=== PATIENT | female | born 1945 | race Caucasian/White ===

== ENCOUNTER → 2017-06-16 | Outpatient (CLI) | payer OTHER ==
[~2017-06-16] MED LIST: ASPIRIN EC325 M1 PO; LISINOPRIL10 MG PO; LOPRESSOR25 PO; MVI; NICODERM CQ1 EAC1 TD; PLAVIX 75 MG TA75 MG PO; SIMVASTATIN40 MG PO
== END ==
LOC: RAD 07:12
DX: Z12.31 Encounter for screening mammogram for malignant neoplasm of breast (principal)

== ENCOUNTER 2017-06-21 10:45 | Emergency (ER) | payer OTHER ==
[~2017-06-21] VITALS: Ht 154.9 cm; Wt 52.2 kg
[~2017-06-21 10:45] MED LIST changes: -ASPIRIN EC325 M1 PO; +ASPIRIN81 M2 PO
[2017-06-21] MEDS ORDERED: FOSAMAX 70 MG T70 MG PO (11:12)
[2017-06-21] MEDS ORDERED: AVALIDE 300-121 EACH PO (11:13)
[2017-06-21 12:08] VITALS: BP 128/54
== END 2017-06-21 12:55 | disposition home or self-care (01) ==
LOC: ER 10:45
DX: S82.62XA Displaced fracture of lateral malleolus of left fibula, initial encounter for closed fracture (principal); I10 Essential (primary) hypertension; F17.210 Nicotine dependence, cigarettes, uncomplicated; Z91.041 Radiographic dye allergy status; W18.40XA Slipping, tripping and stumbling without falling, unspecified, initial encounter; Y93.01 Activity, walking, marching and hiking; Y92.89 Other specified places as the place of occurrence of the external cause; Y99.8 Other external cause status

== ENCOUNTER → 2017-07-13 | Outpatient (CLI) | payer OTHER ==
[~2017-07-13] MED LIST changes: +AVALIDE 300-121 EACH PO; +FOSAMAX 70 MG T70 MG PO
== END ==
LOC: RAD 15:33
DX: J44.9 Chronic obstructive pulmonary disease, unspecified (principal)

== ENCOUNTER → 2017-07-24 | Outpatient (CLI) | payer OTHER | LOC: CAT 08:02 | DX: R63.4 Abnormal weight loss (principal); R91.8 Other nonspecific abnormal finding of lung field ==

== ENCOUNTER → 2017-08-12 | Outpatient (CLI) | payer OTHER | LOC: MRI 09:27 | DX: R22.2 Localized swelling, mass and lump, trunk (principal) ==

== ENCOUNTER → 2018-09-28 | Outpatient (CLI) | payer OTHER | LOC: MRI 13:50 → LABMALL 13:50 → MRI 13:57 | DX: C34.92 Malignant neoplasm of unspecified part of left bronchus or lung (principal); M48.56XA Collapsed vertebra, not elsewhere classified, lumbar region, initial encounter for fracture ==

== ENCOUNTER 2021-07-12 08:30 | Emergency (ER) | payer OTHER ==
[~2021-07-12] VITALS: Ht 167.6 cm; Wt 58.0 kg
[2021-07-12 08:43] LABS: ABSOLUTE NEUTROPHILS 4.1 thou/uL (1.4-8.2); BASOPHILS 0.7 % (0.0-2.0); EOSINOPHILS 4.3 % (0.0-3.0); HEMATOCRIT 36.9 % (37.0-47.0); HEMOGLOBIN 12.3 gm/dL (12.0-15.0); LYMPHOCYTES 16.6 % (24.0-44.0); MCH 31.3 pg (26.0-34.0); MCHC 33.2 g/dL (28.0-37.0); MCV 94.2 fL (80.0-100.0); MONOCYTES 9.6 % (1.0-8.0); PLATELET COUNT 272 thou/uL (150-400); POLYS 68.8 % (36.0-66.0); RBC 3.91 mil/uL (4.20-5.00); RDW 14.3 % (10.5-14.5); WBC 5.9 thou/uL (4.0-11.0)
[2021-07-12 08:49] LABS: CREATININE 1.1 mg/dL (0.6-1.0); POTASSIUM 4.5 mmol/L (3.5-5.1)
[2021-07-12 08:58] LABS: APTT 27.7 Seconds (24.5-32.8); INR 0.98; PROTIME 10.7 Seconds (10.5-12.1)
[2021-07-12 09:00] LABS: ALBUMIN 3.7 g/dL (3.4-5.0); TOTAL BILIRUBIN 0.3 mg/dL (0.2-1.0); TOTAL PROTEIN 7.7 g/dL (6.4-8.2)
--- NOTE | 2021-07-12 12:41 | EKG ---
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 : 1945 Requested By: Toney Gould Order Number: [id number] MD: Juan Veolz Measurements Intervals [place] Rate: 88 P: 72 [place]: 164 QRS: 64 QRSD: 107 T: -22 QT: 374 QTc: 453 Interpretive Statements Sinus rhythm Inferior infarct, age indeterminate Baseline wander in lead(s) V3 Compared to ECG 08/07/2011 07:57:17 No significant changes Electronically Signed On 07-12-2021 12:41:32 CDT by Juan Veloz [email or web address] <ELECTRONICALLY SIGNED> By: Juan Veloz MD, [facility] 07/12/21 1241 0855 [id number] Juan Veloz MD, FACC /EPI
--- NOTE | 2021-07-12 12:46 | EKG ---
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 : 1945 Requested By: Toney Gould Order Number: [id number] MD: Juan Veloz Measurements Intervals [place] Rate: 80 P: -81 AR: 126 QRS: 49 QRSD: 115 T: -19 QT: 412 QTc: 476 Interpretive Statements Ectopic atrial rhythm Nonspecific intraventricular conduction delay Inferior infarct, age indeterminate Consider anterolateral infarct Compared to ECG 07/12/2021 08:55:27 Ectopic atrial rhythm now present Intraventricular conduction delay now present Sinus rhythm no longer present Myocardial infarct finding still present Electronically Signed On 07-12-2021 12:46:30 CDT by Juan Veloz [email or web address] <ELECTRONICALLY SIGNED> By: Juan Veloz MD, [facility] 07/12/21 1246 1135 1135 Juan Veloz MD, [facility] /EPI
[2021-07-12 13:47] VITALS: BP 117/45
== END 2021-07-12 13:51 | disposition short-term general hospital (02) ==
LOC: ER 08:30
PROVIDERS: Student in an Organized Health Care Education/Training Program
DX: R41.82 Altered mental status, unspecified (principal); R22.0 Localized swelling, mass and lump, head; R56.9 Unspecified convulsions; I10 Essential (primary) hypertension; E78.00 Pure hypercholesterolemia, unspecified; Z79.82 Long term (current) use of aspirin; Z79.899 Other long term (current) drug therapy; Z91.041 Radiographic dye allergy status

== ENCOUNTER 2021-08-13 07:42 | Emergency (ER) | payer OTHER ==
[~2021-08-13] VITALS: Ht 154.9 cm; Wt 51.3 kg
--- NOTE | ~2021-08-13 | EMS ---
[address] [address] EMS Patient Care Report Name: TESS ALCANTAR Room #: REG ANGELLA Capone#: [id number] Admission: 08/13/21 Attend Phys: Discharge: Date of : 41 Report #: [id number] THIS REPORT FOR: //name// Report Transmitted: 08/13/2021 07:54 EMS Care Summary [facility] MED-ACT Incident [id number] @ 08/13/2021 07:01 Incident Location [address] [place] [address] Patient TESS ALCANTAR Female, 76 Years 1945 Patient Address [address] [place] [address] Patient History Hypertension (HTN),Seizures,Gastro-Esophageal Reflux Disease (GERD),Brain Tumor, Patient Allergies Other drug allergy, Patient Medications Simvastatin, Levetiracetam, Prednisone, Amlodipine, Hydrocodone, Diphenhydramine, Metoprolol, Zofran, Lorazepam, Dexamethasone, Pantoprazole, Chief Complaint Fever and chills Disposition Transported No Lights/[place] Reason Convulsions/Seizure Transported To [facility] Narrative Dispatch- Medic 1134 is dispatched to a residence for a possible seizure. CC- EMS arrives to find a 76 year old female laying on her right side on the [facility] [address] [place] [address] EMS Patient Care Report Name: TESS ALCANTAR Room #: REG Estelita#: [id number] Admission: 08/13/21 Attend Phys: Discharge: Date of : 41 Report #: [id number] bed in the bedroom. The pt is A&Ox4. The pt has a CC of body aches, chills and feeling cold. She is noted to have a fever. Pt also complained of general body fatigue. History- The pt states that the pt had a seizure 3 weeks ago and went to the ER and it was found the pt has a brain tumor. The states that when the pt experienced a seizure she was not able to have a conversation. The reports that the pt is not presenting the same way as she was 3 weeks ago. The denies any known recent fevers. The pt states she has not experienced any recent issues with urinary frequency. The pt reports that she is "freezing cold" and her body aches everywhere. Assessment- ALS assessment. Pertinent negatives include no chest pain, difficulty breathing, recent infections, or urinary infrequencies. Treatment- ALS, 4 lead EKG, vitals, oxygen, and vascular access. Transport- The pt is carried to the [facility]. The pt is transferred to [facility]. The pt remained stable while en route. The pts Spo2 improved from an initial reading of 84% on room air, to 98% on 4 liters via nasal cannula. The pt only complained of being cold while en route. Initial Vitals @07:23P: 120,BP: 122/57,SpO2: 86, @07:24P: 122,R: 20,EtCO2: 0, @07:26P: 118,R: 36,EtCO2: 29,SpO2: 91, @07:35P: 113,R: 32,BP: 122/69,EtCO2: 31,SpO2: 98, @07:09P: 129,R: 25,BP: 126/56,Pain: 6/10,GCS: 15,Temp: 101.5F,Glucose: 212,SpO2: 84,Revised Trauma: 12,[place] Suspected: false Impression Fever Procedures @07:09 ALS Assessment Response: UnchangedSucceeded @07:11 Oxygen FlowRate: 4 Device: Nasal Cannula (NC) Response: ImprovedSucceeded @07:24 3-Lead ECG Response: UnchangedSucceeded @07:15 Surgical Mask on Patient Response: Unchanged @07:30 IV Therapy - Saline Lock 10cc (20 ga) Site: Forearm-Right Response: UnchangedFailed @07:32 IV Therapy - Saline Lock 10cc (22 ga) Site: Forearm-Left Response: UnchangedSucceeded @07:20 Oxygen FlowRate: 4 Device: CO2 Nasal Cannula Response: UnchangedSucceeded [facility] [address] [place] [address] EMS Patient Care Report Name: TESS ALCANTAR Room #: NICHOLAS Capone#: [id number] Admission: 08/13/21 Attend Phys: Discharge: Date of : 41 Report #: [id number] Timeline 07:00,Call Received 07:00,Psap Call 07:01,Dispatched 07:03,En Route 07:07,On Scene 07:08,At Patient 07:09,ALS Assessment,Response: UnchangedSucceeded, 07:09,BP: 126/56 M,PULSE: 129,RR: 25 R,SPO2: 84 Ox,ETCO2: ,B,PAIN: 6,GCS: 15, 07:11,Oxygen FlowRate: 4 Device: Nasal Cannula (NC) Response: ImprovedSucceeded, 07:15,Surgical Mask on Patient,Response: Unchanged 07:20,Oxygen FlowRate: 4 Device: CO2 Nasal Cannula Response: UnchangedSucceeded, 07:23,BP: 122/57 M,PULSE: 120,RR: R,SPO2: 86 Ox,ETCO2: ,BG: ,PAIN: ,GCS: , 07:24,3-Lead ECG,Response: UnchangedSucceeded, 07:24,BP: / M,PULSE: 122,RR: 20 R,SPO2: Ox,ETCO2: 0 ,BG: ,PAIN: ,GCS: , 07:26,BP: / M,PULSE: 118,RR: 36 R,SPO2: 91 Ox,ETCO2: 29 ,BG: ,PAIN: ,GCS: , 07:29,Depart Scene 07:30,IV Therapy - Saline Lock 10cc 20 ga Site: Forearm-Right,Response: UnchangedFailed, 07:32,IV Therapy - Saline Lock 10cc 22 ga Site: Forearm-Left,Response: UnchangedSucceeded, 07:35,BP: 122/69 M,PULSE: 113,RR: 32 R,SPO2: 98 Ox,ETCO2: 31 ,BG: ,PAIN: ,GCS: , 07:38,At Destination 08:00,Call Closed Disclaimer v1.1 Copyright 2020 [employer] This EMS Care Summary contains data elements from the applicable legal record (which may be displayed differently). It is designed to provide pertinent information for the following purposes: continuity of care, clinical quality, and state data reporting. The complete legal record is available to ED staff and administrators of the receiving hospital in [employer]s Patient Tracker. All data is provided "as is."
[2021-08-13 08:15] LABS: ABSOLUTE NEUTROPHILS 7.2 thou/uL (1.4-8.2); BASOPHILS 0.4 % (0.0-2.0); EOSINOPHILS 0.7 % (0.0-3.0); HEMATOCRIT 33.8 % (37.0-47.0); HEMOGLOBIN 11.1 gm/dL (12.0-15.0); LYMPHOCYTES 2.5 % (24.0-44.0); MCH 30.8 pg (26.0-34.0); MCV 93.4 fL (80.0-100.0); MONOCYTES 6.9 % (1.0-8.0); PLATELET COUNT 249 thou/uL (150-400); POLYS 89.5 % (36.0-66.0); RBC 3.62 mil/uL (4.20-5.00); RDW 15.2 % (10.5-14.5)
[2021-08-13 08:26] LABS: ANION GAP 10 mmol/L (7-16); BUN 25 mg/dL (7-18); CALCIUM 8.2 mg/dL (8.5-10.1); CHLORIDE 98 mmol/L (98-107); CO2 27 mmol/L (21-32); CREATININE 0.9 mg/dL (0.6-1.0); GLUCOSE 149 mg/dL (74-106); POTASSIUM 4.1 mmol/L (3.5-5.1); SODIUM 135 mmol/L (136-145)
[2021-08-13 08:37] LABS: ALBUMIN 2.6 g/dL (3.4-5.0); DIRECT BILIRUBIN < 0.1 mg/dL (<0.1-0.2); SGOT 14 U/L (15-37); SGPT 14 U/L (30-65); TOTAL BILIRUBIN 0.2 mg/dL (0.2-1.0); TOTAL PROTEIN 6.2 g/dL (6.4-8.2); URIC ACID* 2.8 mg/dL (2.6-6.0)
--- NOTE | 2021-08-13 10:37 | EKG ---
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 : 1945 Requested By: Toney Gould Order Number: [id number] MD: Juan Veloz Measurements Intervals [place] Rate: 118 P: 71 HI: 132 QRS: -58 QRSD: 101 T: 17 QT: 303 QTc: 425 Interpretive Statements Sinus tachycardia Probable left atrial enlargement Inferior infarct, old Baseline wander in lead(s) V5 Compared to ECG 07/12/2021 11:35:42 Ectopic atrial rhythm no longer present Intraventricular conduction delay no longer present Myocardial infarct finding still present Electronically Signed On 08-13-2021 10:36:44 CDT by Juan Veloz [email or web address] <ELECTRONICALLY SIGNED> By: Juan Veloz MD, [facility] 08/13/21 1036 0744 Juan Veloz MD, [facility] /EPI
[2021-08-13 11:32] LABS: URINE BILIRUBIN NEGATIVE (Negative); URINE BLOOD TRACE (Negative); URINE CLARITY CLEAR; URINE COLOR YELLOW; URINE GLUCOSE-RANDOM* NEGATIVE (Negative); URINE KETONES NEGATIVE (Negative); URINE LEUKOCYTES-REFLEX NEGATIVE (Negative); URINE NITRITE-REFLEX NEGATIVE (Negative); URINE PROTEIN (DIPSTICK) 1+ (Negative); URINE SPECIFIC GRAVITY >= 1.030 (1.005-1.035); URINE UROBILINOGEN 0.2 E.U./dl (0.2-1.0)
[2021-08-13 11:51] LABS: CASTS None Seen /LPF (None Seen); MUCUS 0-3 Light strn/LPF (None Seen); SQUAMOUS 0-3 Few /LPF (0-3)
[2021-08-13 11:52] LABS: BACTERIA-REFLEX 1-9 Few /HPF (None Seen); URINE RBC 1-2 Rare /HPF (NONE SEEN); URINE WBC-REFLEX 0-5 Rare /HPF (0-5)
[2021-08-13 11:53] LABS: AMORPHOUS URATES Few /LPF (None Seen)
[2021-08-13] MEDS ORDERED: CEPHALEXIN500 MG PO (12:40)
[2021-08-13 12:51] VITALS: BP 116/55
== END 2021-08-13 13:08 | disposition home or self-care (01) ==
LOC: ER 07:42
PROVIDERS: Student in an Organized Health Care Education/Training Program
DX: N39.0 Urinary tract infection, site not specified (principal); Z20.822 Contact with and (suspected) exposure to COVID-19; R50.9 Fever, unspecified; I10 Essential (primary) hypertension; E78.00 Pure hypercholesterolemia, unspecified; Z79.82 Long term (current) use of aspirin; Z79.899 Other long term (current) drug therapy; Z91.041 Radiographic dye allergy status

== ENCOUNTER 2021-08-15 23:56 | Inpatient (IN) | payer OTHER ==
[~2021-08-15] VITALS: Ht 152.4 cm; Wt 51.9 kg
[~2021-08-15 23:56] MED LIST changes: +CEPHALEXIN500 MG PO
[2021-08-16] VITALS (9 sets, daily range): BP systolic 111–153; BP diastolic 54–74
[2021-08-16 00:32] LABS: ABSOLUTE NEUTROPHILS 7.1 thou/uL (1.4-8.2); BASOPHILS 0.4 % (0.0-2.0); HEMOGLOBIN 11.7 gm/dL (12.0-15.0); LYMPHOCYTES 4.8 % (24.0-44.0); MCH 31.4 pg (26.0-34.0); MCHC 33.5 g/dL (28.0-37.0); MCV 93.6 fL (80.0-100.0); MONOCYTES 9.5 % (1.0-8.0); PLATELET COUNT 274 thou/uL (150-400); POLYS 84.3 % (36.0-66.0); RBC 3.74 mil/uL (4.20-5.00); RDW 15.4 % (10.5-14.5); WBC 8.4 thou/uL (4.0-11.0)
[2021-08-16 00:41] LABS: CALCIUM 8.7 mg/dL (8.5-10.1); CREATININE 1.2 mg/dL (0.6-1.0); POTASSIUM 4.2 mmol/L (3.5-5.1)
[2021-08-16 00:44] LABS: APTT 31.8 Seconds (24.5-32.8); INR 1.08; PROTIME 11.7 Seconds (10.5-12.1); TOTAL BILIRUBIN 0.3 mg/dL (0.2-1.0); TOTAL PROTEIN 7.3 g/dL (6.4-8.2)
[2021-08-16] MEDS ORDERED: CEPHALEXIN500 MG PO (01:32)
[2021-08-16] MEDS ORDERED: METOPROLOL TART25 MG PO (01:33)
[2021-08-16] MEDS ORDERED: ZOCOR 20 MG TAB20 M1 PO (01:34)
[2021-08-16] MEDS ORDERED: PROTONIX40 M2 PO (01:34)
[2021-08-16] MEDS ORDERED: TRELEGY ELLIPT1 EACH INH (01:35)
[2021-08-16] MEDS ORDERED: KEPPRA750 MG PO (01:36)
[2021-08-16] MEDS ORDERED: MICARDIS HCT 41 EACH PO (01:37)
[2021-08-16] MEDS ORDERED: PLAVIX 75 MG TA75 MG PO (01:39)
[2021-08-16] MEDS ORDERED: NORVASC5 MG PO (01:40)
[2021-08-16] MEDS ORDERED: KLOR-CON M2020 MEQ PO (01:40)
[2021-08-16 06:07] LABS: HEMATOCRIT 32.6 % (37.0-47.0); HEMOGLOBIN 10.9 gm/dL (12.0-15.0); MCH 31.2 pg (26.0-34.0); MCHC 33.3 g/dL (28.0-37.0); MCV 93.8 fL (80.0-100.0); RBC 3.48 mil/uL (4.20-5.00); RDW 14.9 % (10.5-14.5); WBC 6.8 thou/uL (4.0-11.0)
--- NOTE | 2021-08-16 06:22 | NUR ---
ADMIT PT ADMITTED TO ROOM 363 FROM ED. BEING ADMITTED WITH LEFT THIGH DVT, LEFT LEG SWOLLEN AND DUSKY PEDAL PULSE PRESENT BUT WEAK. VSS. PT A/O X4 BUT A LITTLE FORGETFUL. ADMISSION ASSESSMENT AND ADMISSION QUESTIONAIRE COMPLETED. PT ORIENTED TO ROOM CALL LIGHT SYSTEM AND POC. PT UNSTEADY ON FEET. FALL PRECAUTIONS IN PLACE.
[2021-08-16 06:39] LABS: INR 1.09; PROTIME 11.8 Seconds (10.5-12.1)
--- NOTE | 2021-08-16 06:51 | NUR ---
PT PTT AT 645 121.8 CRISTOBAL NORMAN NOTIFIED. HEPARIN DRIP PLACED ON HOLD FOR 1 HOUR PER HEPARIN PROTOCOL. CONTINUE TO MONITOR.
--- NOTE | 2021-08-16 10:16 | NUR ---
Nutrition: consult for malnutrition. Hx of metastatic lung cancer noted. Pt reported that she did well with breakfast this am and has a normal appetite. Pt denied trouble chewing/swallowing or any N/V. Pt denied wt loss from UBW 115 lb, wt is WNL. Albumin 3.0, RFT's elevated. Meds reviewed. Pt stated she does not drink any supplements. Assess at low nutrition risk at this time.
--- NOTE | 2021-08-16 13:35 | NUR ---
INITIAL ASSESSMENT: Received consult. SW reviewed chart and spoke with nursing and attending physician. Pt was admitted from home due to LLE DVT. Pt with hx of metastatic lung CA. Pt goes to [facility]. Pt is currently on 2L of O2. Possible weekend discharge. FRANCESCA met with pt at bedside. Introduced role of SW. Pt is alert/orientated x 4. Pt reports she lives at home with her . Prior to admission, pt was independent with ADLs. Pt states she has home O2 at home to use PRN. Pt is unsure name of provider. Pt's PCP is Dr. Roman Tafoya. No hx of services or post-acute placement. Pt denies having any discharge needs at this time. Pt will discharge home when medically stable. FRANCESCA is following to assist as needed with discharge planning.
--- NOTE | 2021-08-16 18:46 | NUR ---
transitioned to PO anticoagulants. dec swelling and pain in LLE. up to BSC w/ 1 assist. anticipate d/c soon.
--- NOTE | 2021-08-17 05:00 | NUR ---
Patient progressing towards outcome goals. Oxygenation optimal with 2L/NC which is baseline for patient. High fall risks, fall precautions in place. Uses call light appropriately for needs. Gait slow but steady. Vital signs and rythm stable. Small hard BM after MOM, patient refuse Dulcolax suppository. Orders received for senna docusate.
[2021-08-17 05:18] VITALS: BP 109/54
[2021-08-17 07:52] VITALS: BP 135/55
[2021-08-17 11:33] VITALS: BP 10/48; BP 110/48
[2021-08-17 15:49] VITALS: BP 113/52
[2021-08-17 19:29] VITALS: BP 110/48
[2021-08-18 04:20] VITALS: BP 114/60
--- NOTE | 2021-08-18 06:40 | NUR ---
Pt. slept fair during the night. Denies any pain. O2 sat in the low 90's on 3L/NC. She does get short of breath with exertion. Pt. encouraged to use call light to ask and wait for assitance to use commode. She is very weak , has tremors and unsteady on her feet. Bed alarm on for safety. No active bleeding.
[2021-08-18 07:11] VITALS: BP 108/58
[2021-08-18 11:00] VITALS: BP 115/57
[2021-08-18 16:37] VITALS: BP 124/62
--- NOTE | 2021-08-18 17:53 | NUR ---
PATIENT IS ALERT AND ORIENTED X4 THIS SHIFT. SHE HAS DIMINISHED BREATH SOUNDS. PATIENT DOES NOT REPORT FEELING SHORT OF BREATH AT REST BUT DOES STATE THAT SHE FEELS SHORT OF BREATH WITH TRANSFERRING. EMPERATRIZTENT HAS BEEN BOTH SINUS TACHY (111) AND BEEN SINUS RYTHM THIS SHIFT. PATIENT IS UNSTEADY ON HER FEET WHEN SHE GOT UP TO THE BED SIDE COMMODE. PATIENT WAS INCONTINENT OF STOOL ONE TIME THIS SHIFT. PATIENT WAS ASSISTED WITH CLEANING HERSELF AND AIDED BACK TO BED. PATIENT WAS 100.5 AT 1637. PATIENTS TEMPERATURE AT 1800 IS NOW 100.1. PATIENT HAS NO MEDICAL CONCERNS AT THIS TIME. PATIENT WILL CONTINUE TO BE MONITORED.
[2021-08-18 19:12] VITALS: BP 113/55
[2021-08-19 03:06] VITALS: BP 127/67
[2021-08-19 05:40] LABS: HEMATOCRIT 28.2 % (37.0-47.0); HEMOGLOBIN 9.4 gm/dL (12.0-15.0); MCH 31.3 pg (26.0-34.0); MCHC 33.4 g/dL (28.0-37.0); MCV 93.7 fL (80.0-100.0); RBC 3.01 mil/uL (4.20-5.00); RDW 15.1 % (10.5-14.5); WBC 6.6 thou/uL (4.0-11.0)
--- NOTE | 2021-08-19 06:15 | NUR ---
Pt. c/o not feeling well at beginning of shift.Verbalized she's feeling weak and shaky. Assisted to reposition on bed to help make her comfortable. She stated this am she's got some sleep and feeling better. Denies being in pain. O2 sat in the low 90's at beginning of shift on 3L/NC. RT titrated O2 to 4L and now O2 sat in the mid 90's. She does get short of breath with exertion. Up with assist to commode to void and had large soft bm x2 this am. No bleeding noted. Bed alarm on.
--- NOTE | 2021-08-19 07:12 | HC ---
[facility] [place] [address] CONSULTATION Name: TESS ALCANTAR Room #: 363-P ADM IN M.R.#: [id number] Admission: 08/16/21 Attend Phys: Ron Obando Discharge: Date of : 41 Report #: [id number] THIS REPORT FOR: cc: Roman Tafoya MD, Eric K. MD McKittrick, Richard James MD ~ cc: Roman Tafoya MD, Jose R Stallings MD, Ondina King MD DATE OF SERVICE: 08/18/2021 REASON FOR CONSULT: Metastatic lung cancer with brain met and recent/new left leg DVT without pulmonary emboli found. PHYSICIAN REQUESTING: Dr. Obando. HISTORY OF PRESENT ILLNESS: The patient is a 76-year-old female with metastatic lung cancer to the brain and to the bone, who came to the hospital because of short history of left leg swelling, mostly in the thigh that she knows with. Here at [place], an ultrasound showed an extensive left thigh clot. Note that a CT chest, abdomen and pelvis without contrast did not see any pulmonary emboli and there is a question about progressive disease, but may be a time interval comparison issue. She also had an MRI head here, which showed a left occipital mass measuring 1.1 cm. It looks like this has been compared to outside [facility] films and essentially the same. The patient at this time denies headache, fevers, chills, nausea, vomiting. Does have a chronic cough. No nausea, may be some slight constipation, no blood in her urine or stool. No recent skin rash. She is not sure if she has had any leg swelling. No evidence of sweling at this time, she notices it when she stands up and she has not really stood up much since she got here. Past history is notable for the lung cancer diagnosed in 07/2017. At about the same time, an MRI of the thoracic spine showed a T10 vertebral mass. She had a biopsy that showed metastatic adenocarcinoma consistent with lung primary, but there was insufficient additional DNA for testing. 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 She initially was referred for radiation therapy, which she completed in 09/2017 with 5 fractions to her back. 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 She then began systemic therapy with carboplatin and pemetrexed began on 09/21/2017 along with Zometa. Repeat scan in 10/2017 showed decrease in the lesion. She completed 4 cycles on 11/24/2017. She then began maintenance Alimta in 12/2017. I believe this was held in March due to fatigue, but will need to clarify that. Then, in 2018, she had been on nivolumab, not sure when that was, think that was held after infusion in 08/2019. MRI of the head on [address] [address] CONSULTATION Name: TESS ALCANTAR Room #: 363-P [facility] IN M.R.#: [id number] Admission: 08/16/21 Attend Phys: Ron Obando Discharge: Date of : 41 Report #: [id number] 07/12/2021 showed a 1.2 cm medial left occipital lobe mass. Her recent scans in July did not show any disease progression, overall stability. She then recently underwent radiation therapy. She also has a history of respiratory failure, is on oxygen. Also, history of hypertension, hyperlipidemia, coronary artery disease with stenting, the lung cancer, possible seizure disorder. Also has a history of peripheral vascular disease and osteoporosis, nondisplaced fracture of the greater trochanter of the femur in 2018. Also, history of Heredia's esophagus. 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 She is a former smoker. No significant alcohol, no street drugs. Has a cat that is white and brown at home and also supportive by her description. Quit smoking in 07/2018, one pack a day for 60 years. No vaping. Has two children. MEDICATIONS: At this time in the hospital currently include apixaban 5 b.i.d., docusate 1 tab b.i.d., bisacodyl 10 mg p.r.n., losartan 25 mg daily, levetiracetam 750 b.i.d., amlodipine 5 daily, metoprolol 25 b.i.d., atorvastatin 20 mg daily, clopidogrel 75 daily, cephalexin 500 b.i.d., hydrochlorothiazide 12.5 daily, pantoprazole 40 daily, ipratropium 3 mL respiratory therapy q.4, Tylenol p.r.n., Zofran p.r.n. PHYSICAL EXAMINATION: GENERAL: The patient is in a general med/surg bed. VITAL SIGNS: Height reported as 5 feet 1 inch or 152.4 cm, weight 114 pounds or 51.94 kilograms. Recent blood pressure 108/58, O2 sat 90% on 2 liters, pulse 100, temperature afebrile 97.8, respirations 18. HEENT: Face is symmetrical and perhaps slightly obese. Has oxygen in place. NECK: No enlarged lymph nodes in the supraclavicular, cervical, axillary region. ABDOMEN: Slightly obese. No definite organomegaly. EXTREMITIES: Without clubbing, cyanosis. HEART: Regular rate. LUNGS: Have some slight rhonchi with cough, mostly on the anterior right today I thought. LABORATORY DATA: Lab review here in the hospital, notable for creatinine of 1.2, AST is 18, total bilirubin less than 0.1, calcium 8.7, ALT 20, albumin 3.0. Coags before anticoagulation showed INR 1.0 and an APTT at 31.8. D-dimer is 18.43 on admission. White count today 8.4, hemoglobin 11.7, MCV 93.6, platelets 274. Differential shows increase in neutrophils. Levetiracetam level is pending. COVID was negative. UA did not see any bacteria, did see 1+ protein, trace blood ____ there are a few bacteria mentioned. ASSESSMENT AND PLAN: [address] [address] CONSULTATION Name: TESS ALCANTAR Room #: 363-P ADM IN M.R.#: [id number] Admission: 08/16/21 Attend Phys: Ron Obando Discharge: Date of : 41 Report #: [id number] 1. Brain metastasis with new left deep vein thrombosis. In most patients in this situation, it is prudent to go and treat the clot as before. Recent data shows that novel agent such as apixaban or as safe as Lovenox and probably as safe and better tolerated by the patient on things such as Coumadin. Also, recent evidence confirms it is okay or safe for patients to ambulate. This does not mean she should be running marathons, but she should use judicious activity, so she does not become deconditioned or weakened. 2. Central nervous system metastasis, status post recent radiation therapy, to follow Dr. King. 3. Metastatic lung cancer. We will have outpatient followup with Dr. Jose R Stallings. 4. Respiratory failure. Continue to use oxygen at home. 5. Hyperlipidemia. Atorvastatin. 6. Hypertension and coronary artery disease. Multiple medications per others. 7. Coronary artery disease with stent, is on Plavix. 8. History of seizure disorder, also on levetiracetam. We will follow with you. <ELECTRONICALLY SIGNED> By: Salomon Lopez MD 08/19/21 0712 0747 0829 Salomon Lopez MD /nt
[2021-08-19 07:57] VITALS: BP 107/62
[2021-08-19 11:34] VITALS: BP 129/62
[2021-08-19] MEDS ORDERED: ELIQUIS5 MG PO (11:51)
--- NOTE | 2021-08-19 15:00 | NUR ---
DISCHARGE NOTE: SW reviewed chart and spoke with nursing and attending physician. Pt is medically stable for discharge home today. Pt will follow up with oncology clinic. SW met with pt at bedside to discuss discharge plan. Pt is aware and in agreement with plan. Pt declines referral for HH services. Pt's family to provide transportation home. No SW needs identified at this time. SW is available to assist should needs arise.
--- NOTE | 2021-08-19 16:23 | NUR ---
pT a & o X4. PT VS TABLE. PT IS ON 4L NC OF 02. PT IS X 1 ASSIST WITH ADLS AND CARES. PT RECEIVED DISCHARGE ORDERS TO HOME. PT DISCHARGE INSTRUCTIONS REVIEWED WITH PT AND PT VERBALIZED UNDERSTANDING AND SIGNED INSTRUCTIONS. PT WHEELED TO FRONT ENTERENCE IN WHEEL CHAIR BY STAFF AND LEFT HOSPITAL WITHOUT INCIDENT IN PRIVATE VEHICLE.
--- NOTE | 2021-08-19 16:26 | NUR ---
PT PORT DEACCESSED.
[2021-08-20] MEDS ORDERED: ELIQUIS5 MG PO (01:10)
== END 2021-08-19 16:33 | disposition home or self-care (01) | DRG 299 ==
LOC: ER 23:56 → 3W 08-16 01:11 → EROBS 08-16 01:11 → 3W 08-16 02:24
PROVIDERS: Emergency Medicine; ADMIT Hospitalist; ATTEND Hospitalist
PROC: 5A09357 Assistance with Respiratory Ventilation, Less than 24 Consecutive Hours, Continuous Positive Airway Pressure (ICD-10-PCS; principal; 2021-08-16)
DX: I82.412 Acute embolism and thrombosis of left femoral vein (principal); R65.11 Systemic inflammatory response syndrome (SIRS) of non-infectious origin with acute organ dysfunction; J96.20 Acute and chronic respiratory failure, unspecified whether with hypoxia or hypercapnia; E46 Unspecified protein-calorie malnutrition; N39.0 Urinary tract infection, site not specified; J96.11 Chronic respiratory failure with hypoxia; C34.90 Malignant neoplasm of unspecified part of unspecified bronchus or lung; I82.452 Acute embolism and thrombosis of left peroneal vein; I10 Essential (primary) hypertension; E78.00 Pure hypercholesterolemia, unspecified; I25.10 Atherosclerotic heart disease of native coronary artery without angina pectoris; G40.909 Epilepsy, unspecified, not intractable, without status epilepticus; R53.81 Other malaise; E78.5 Hyperlipidemia, unspecified; G47.00 Insomnia, unspecified; I82.442 Acute embolism and thrombosis of left tibial vein; Z95.5 Presence of coronary angioplasty implant and graft; Z98.49 Cataract extraction status, unspecified eye; Z88.8 Allergy status to other drugs, medicaments and biological substances; Z91.041 Radiographic dye allergy status; I25.2 Old myocardial infarction; Z82.49 Family history of ischemic heart disease and other diseases of the circulatory system; Z87.891 Personal history of nicotine dependence; Z23 Encounter for immunization
CPT/HCPCS: 10879

== ENCOUNTER 2021-08-19 21:29 | Inpatient (IN) | payer OTHER ==
[~2021-08-19] VITALS: Ht 154.9 cm; Wt 54.0 kg
--- NOTE | ~2021-08-19 | EMS ---
[address] [address] EMS Patient Care Report Name: TESS ALCANTAR Room #: 213-P ADM IN M.R.#: [id number] Admission: 08/19/21 Attend Phys: Michael Schmitt MD Discharge: Date of : 41 Report #: [id number] THIS REPORT FOR: //name// Report Transmitted: 08/23/2021 10:18 EMS Care Summary [facility] MED-ACT Incident [id number] @ 08/19/2021 20:45 Incident Location [address] [place] [address] Patient TESS ALCANTAR Female, 76 Years 1945 Patient Address [address] [place] [address] Patient History Chronic Obstructive Pulmonary Disease (COPD),Hypertension (HTN),Seizures,Gastro-Esophageal Reflux Disease (GERD),Brain Tumor, Patient Allergies Other drug allergy, Patient Medications Dexamethasone, Pantoprazole, Prednisone, Simvastatin, Metoprolol, Zofran, Hydrocodone, Lorazepam, Levetiracetam, Diphenhydramine, Amlodipine, Chief Complaint weakness Disposition Transported No Lights/[place] Reason Falls Transported To [facility] Narrative Arrived to find pt lying in bed alert and oriented. Pt complained of generalized weakness. pt stated she fell off her toilet due to the weakness. [address] [address] EMS Patient Care Report Name: TESS ALCANTAR Room #: 213-P [facility] IN ..#: [id number] Admission: 08/19/21 Attend Phys: Michael Schmitt MD Discharge: Date of : 41 Report #: [id number] Pt stated she has been feeling weak for the past several days and has been having difficulty with her mobility. Pt stated she was just discharged from [facility] today about 16:00 and was admitted for DVT's on . Pt denied any pain , shortness of breath, or nausea. Pt was assisted to the stairchair and taken to the cot and placed in the position of comfort. En route pt rested without change. Upon arrival pt was taken to 7 and care transferred to staff mechanical engineer with report. Initial Vitals @PTAP: 109,SpO2: 85,[place] Suspected: false @21:18P: 106,R: 18,BP: 108/66,Pain: 0/10,GCS: 15,SpO2: 97,Revised Trauma: 12, @PTAP: 130,R: 18,BP: 118/72,Pain: 0/10,GCS: 15,Temp: 98F,SpO2: 81,Revised Trauma: 12, Impression Generalized Weakness Procedures @JAX34-Albu ECG @21:00 IV Therapy - Saline Lock 10cc (18 ga) Site: Antecubital-Right Response: UnchangedSucceeded @21:00 Surgical Mask on Patient Response: Unchanged Timeline DATE PULLER,12-Lead ECG, DATE PULLER,BP: / M,PULSE: 109,RR: R,SPO2: 85 Ox,ETCO2: ,BG: ,PAIN: ,GCS: , DATE PULLER,BP: 118/72 M,PULSE: 130,RR: 18 R,SPO2: 81 Ox,ETCO2: ,BG: ,PAIN: 0,GCS: 15, 20:25,Call Received 20:25,Psap Call 20:45,Dispatched 20:47,En Route 20:52,On Scene 20:52,At Patient 21:00,IV Therapy - Saline Lock 10cc 18 ga Site: Antecubital-Right,Response: UnchangedSucceeded, 21:00,Surgical Mask on Patient,Response: Unchanged 21:16,Depart Scene 21:18,BP: 108/66 M,PULSE: 106,RR: 18 R,SPO2: 97 Ox,ETCO2: ,BG: ,PAIN: 0,GCS: 15, 21:23,At Destination 21:38,Call Closed Disclaimer v1.1 Copyright 2020 [employer] [address] EMS Patient Care Report Name: TESS ALCANTAR Room #: 213-P ADM [facility].#: [id number] Admission: 08/19/21 Attend Phys: Michael Schmitt MD Discharge: Date of : 41 Report #: [id number] This EMS Care Summary contains data elements from the applicable legal record (which may be displayed differently). It is designed to provide pertinent information for the following purposes: continuity of care, clinical quality, and state data reporting. The complete legal record is available to ED staff and administrators of the receiving hospital in [facility]'s Patient Tracker. All data is provided "as is."
[~2021-08-19 21:29] MED LIST changes: +ELIQUIS5 MG PO; +KEPPRA750 MG PO; +KLOR-CON M2020 MEQ PO; +METOPROLOL TART25 MG PO; +MICARDIS HCT 41 EACH PO; +NORVASC5 MG PO; +PROTONIX40 M2 PO; +TRELEGY ELLIPT1 EACH INH; +ZOCOR 20 MG TAB20 M1 PO
[2021-08-19 21:31] VITALS: BP 129/65
[2021-08-19 22:14] LABS: ABSOLUTE NEUTROPHILS 7.5 thou/uL (1.4-8.2); BASOPHILS 0.5 % (0.0-2.0); EOSINOPHILS 0.4 % (0.0-3.0); HEMATOCRIT 30.7 % (37.0-47.0); HEMOGLOBIN 10.3 gm/dL (12.0-15.0); LYMPHOCYTES 2.6 % (24.0-44.0); MCH 31.4 pg (26.0-34.0); MCHC 33.7 g/dL (28.0-37.0); MCV 93.3 fL (80.0-100.0); PLATELET COUNT 342 thou/uL (150-400); POLYS 89.5 % (36.0-66.0); RBC 3.29 mil/uL (4.20-5.00); RDW 15.2 % (10.5-14.5); WBC 8.4 thou/uL (4.0-11.0)
[2021-08-19 22:23] LABS: CALCIUM 8.8 mg/dL (8.5-10.1); POTASSIUM 3.3 mmol/L (3.5-5.1)
[2021-08-19 22:37] LABS: BE(vivo) 1.4 mmol/L (-2 to +3); HCO3 25.6 mmol/L (22.0-26.0); PCO2 38.6 mmHg (35.0-45.0); PO2 123.4 mmHg (80.0-100.0); pH 7.439 (7.360-7.450); sO2 98.6 % (92.0-98.0)
--- NOTE | 2021-08-19 22:38 | NUR ---
Talked with with pt's permission to update him [phone]
[2021-08-20] VITALS (7 sets, daily range): BP systolic 109–147; BP diastolic 52–91
[2021-08-20] MEDS ORDERED: ELIQUIS5 MG PO (01:10)
--- NOTE | 2021-08-20 07:25 | EKG ---
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
--- NOTE | 2021-08-20 08:00 | NUR ---
PT ADIMANT ABOUT AMBULATING TO BATHROOM "WALKING MAKES ME FEEL BETTER" WHEELED PT IN A WHEELCHAIR TO BATHROOM, PT REMAINED ON 2L NC DURING BATHROOM VISIT. ON RETURN TO ROOM PT WAS EXTREMELY DIAPHORETIC, SATURATIONS 74% ON 2L AND HR 134. PT NC PLACED AT 5L AND SATURATIONS IMPROVED TO 90% AFTER COACHING PATIENT TO TAKE SLOW DEEP BREATHS THROUGH HER NOSE.
--- NOTE | 2021-08-20 15:50 | NUR ---
Met with patient who admits with weakness. Patient dc home on Aug 19 and readmitted same day. Patient has home oxygen. She has lung cancer [facility]. Patient reports she became weak in hospital because they dont allow you to ambulate in your room. She reported she wanted to go look out the window and could not do that without alarm sounding. Discussed post acute care. Left [employer] list in room. Patient reports at dc she wants to return home. She has a cat she misses. She has spouse in home. She has 2 children one lives locally [facility] and Alhaji lives in [place]. Left message for spouse on phone.
[2021-08-21 00:02] VITALS: BP 121/59
[2021-08-21 00:26] LABS: HEMATOCRIT 26.9 % (37.0-47.0); HEMOGLOBIN 8.8 gm/dL (12.0-15.0); MCH 30.6 pg (26.0-34.0); MCHC 32.5 g/dL (28.0-37.0); RBC 2.86 mil/uL (4.20-5.00); RDW 15.4 % (10.5-14.5); WBC 4.5 thou/uL (4.0-11.0)
[2021-08-21 00:52] LABS: APTT > 139.0 Seconds (24.5-32.8); INR 1.24; PROTIME 13.4 Seconds (10.5-12.1)
[2021-08-21 04:14] VITALS: BP 115/45
[2021-08-21 05:59] LABS: CALCIUM 8.8 mg/dL (8.5-10.1); CREATININE 0.8 mg/dL (0.6-1.0); POTASSIUM 4.1 mmol/L (3.5-5.1)
[2021-08-21 07:35] VITALS: BP 131/54
[2021-08-21 11:20] VITALS: BP 101/51
--- NOTE | 2021-08-21 11:50 | NUR ---
Spoke with spouse who reports patient needs skilled rehab prior to home. Offered to email [facility] list to review but spouse wants list left in room. He did not see it yesterday. List is in room for spouse to revivew.
[2021-08-21 16:20] VITALS: BP 123/63
--- NOTE | 2021-08-21 17:25 | NUR ---
[facility] Faxed referral for review.
[2021-08-21 19:07] VITALS: BP 126/54
--- NOTE | 2021-08-21 20:28 | NUR ---
PT REMAINS ON HEPARIN APTT >139 FOLLOWED PROTOCAL AND ADJUSTED ACCORDINGLY. PT BECAME ANXIOUS STATING SHE FEELS LIKE SHE IS OUT OF CONTROL. PT UNABLE TO QUANTIFY THE FEELING. I ASKED THE TIMI TO MEET WITH THE PT, THE TIMI LEARNED THAT THE PT HAS NOT INFORMED HER FRIENDS OF HER HEALTH CONDITIONS. PATIENT STATED SHE JUST WANTS TO GO HOME AND WAS CALLING HER TO PICK HER UP. I SPOKE WITH THE PATIENT AND OFFERED TO CALL THE PHYSICIAN TO GET HER SOMETHING TO RELAX THE PATIENT AGREED THAT WOULD BE HELPFUL. SPOKE WITH THE PHYSICIAN AND RECEIVED ORDERS TO TREAT ANXIETY. PT RECEIVED MEDICATIONS AFTER A HALF AN HOUR SPOKE WITH THE PATINET AGAIN AND SHE STATED "I FEEL MUCH BETTER"
[2021-08-22 04:18] VITALS: BP 133/49
--- NOTE | 2021-08-22 05:53 | NUR ---
PT IS SLOWLY PROGRESSING TOWARD HER GOAL OF DISCHARGE. SHE CONTINUES ON HEPARIN GTT. LABS DRAWN AT 0155 AND INFUSION TITRATED PER PROTOCOL. PT WITH INCREASED CONFUSION DURING THE NIGHTTIME HOURS, DISORIENTED TO TIME AND PLACE. PT RECEIVED PRN HALDOL X1 FOR AGITATION AND IMPULSIVENESS WITH GOOD EFFECT. WILL CONTINUE TO OBSERVE FOR CHANGES.
[2021-08-22 08:54] VITALS: BP 118/48
[2021-08-22 10:48] LABS: HEMATOCRIT 26.7 % (37.0-47.0); HEMOGLOBIN 8.9 gm/dL (12.0-15.0); MCH 31.1 pg (26.0-34.0); MCHC 33.3 g/dL (28.0-37.0); MCV 93.3 fL (80.0-100.0); RBC 2.86 mil/uL (4.20-5.00); RDW 15.3 % (10.5-14.5); WBC 6.1 thou/uL (4.0-11.0)
--- NOTE | 2021-08-22 11:39 | NUR ---
requested to inquire into Lovenox coverage. generic 60 milligrams $67.66. Generic 80 milligram $47.42. Inquired into doan with [facility]. Referral to [facility] for skilled care.
[2021-08-22 12:26] VITALS: BP 110/44
[2021-08-22 15:43] VITALS: BP 136/97
--- NOTE | 2021-08-22 18:59 | NUR ---
ASSESSMENT CHARTED - MEDS PER MAR - GIVEN BOOMFRAN FOR CO'S OF NAUSEA WITH LITTLE EFFECT. EATING DIET AND FLUIDS WITH NO EMISIS. PT UP TO THE BSC WITH ASSIST - UNSTEADY ON FEET. HEPARIN DRIP CONTINUES - ADJUSTMENT MADE PER PROTOCOL. NO CO'S AT THE PRESENT TIME - RESTING COMFORTABLY.
[2021-08-22 20:11] VITALS: BP 121/61
[2021-08-23 03:33] VITALS: BP 136/63
[2021-08-23 05:28] LABS: HEMATOCRIT 27.6 % (37.0-47.0); HEMOGLOBIN 9.1 gm/dL (12.0-15.0); MCV 94.1 fL (80.0-100.0); RBC 2.93 mil/uL (4.20-5.00); RDW 14.9 % (10.5-14.5); WBC 4.7 thou/uL (4.0-11.0)
--- NOTE | 2021-08-23 07:34 | NUR ---
assumed pt care at 1900, alert and oriented, forgetful, sr on tele, denies nausea and vomiting, remains on 2l, o2sats stable, assessments as charted, on heparin gtt, titrated per protocol, pt pulled the accessed port to the r. chest, oncoming nurse notified, no complains through the night passed on report to day nurse
[2021-08-23 08:46] VITALS: BP 118/56
[2021-08-23 12:00] VITALS: BP 134/53
--- NOTE | 2021-08-23 15:19 | NUR ---
Rec auth for post acute care. faxed orders to [facility], chart copied. van for 1700. Notfied patient, rn, and spouse. Rn has number for report no further needs
[2021-08-23 16:13] VITALS: BP 130/57
--- NOTE | 2021-08-23 17:14 | NUR ---
PATIENT ALERT, ORIENTED, FOLLOWING COMMANDS. PATIENT ATE MEALS INDEPENDELY AND HAD SPOUSE AT THE BEDSIDE. DISCHARGE EDUCATION PROVIDED AND QUESTIONS ABOUT NEW MEDICAITONS WERE ANSWERED. ATTEMPTED TO CALL TRANSFERRING FACILITY WITH NO ANSWER. PATIENT TRANSPORTED VIA WHEELCHAIR TO THE SNF SENT VAN. IV'S NOT IN PLACE, TELEMETRY DISCONTINUED. PATIENT HAS BELONGINGS AND NO FURTHUR QUESTIONS ABOUT DISCHARGE.
== END 2021-08-23 17:18 | DRG 175 ==
LOC: ER 21:29 → 2N 23:38 → EROBS 23:38 → 2N 08-20 08:40
PROVIDERS: Nurse Practitioner; ADMIT Hospitalist; ATTEND Hospitalist
PROC: 06H03DZ Insertion of Intraluminal Device into Inferior Vena Cava, Percutaneous Approach (ICD-10-PCS; principal; 2021-08-20)
DX: I26.99 Other pulmonary embolism without acute cor pulmonale (principal); J96.21 Acute and chronic respiratory failure with hypoxia; E78.5 Hyperlipidemia, unspecified; I25.10 Atherosclerotic heart disease of native coronary artery without angina pectoris; R53.81 Other malaise; G40.909 Epilepsy, unspecified, not intractable, without status epilepticus; Z20.822 Contact with and (suspected) exposure to COVID-19; I10 Essential (primary) hypertension; E78.00 Pure hypercholesterolemia, unspecified; Z95.5 Presence of coronary angioplasty implant and graft; Z85.118 Personal history of other malignant neoplasm of bronchus and lung; Z89.431 Acquired absence of right foot; Z98.49 Cataract extraction status, unspecified eye; Z92.21 Personal history of antineoplastic chemotherapy; Z88.8 Allergy status to other drugs, medicaments and biological substances; Z91.041 Radiographic dye allergy status; I25.2 Old myocardial infarction; Z87.891 Personal history of nicotine dependence; Z87.81 Personal history of (healed) traumatic fracture
CPT/HCPCS: 10081

== ENCOUNTER 2021-10-03 19:10 | Emergency (ER) | payer OTHER ==
[~2021-10-03] VITALS: Ht 154.9 cm; Wt 52.2 kg
[2021-10-03] MEDS ORDERED: CEPHALEXIN500 MG PO (21:39)
[2021-10-03 21:40] VITALS: BP 117/71
== END 2021-10-03 21:43 | disposition home or self-care (01) ==
LOC: ER 19:10
DX: S61.411A Laceration without foreign body of right hand, initial encounter (principal); I10 Essential (primary) hypertension; E78.00 Pure hypercholesterolemia, unspecified; I25.10 Atherosclerotic heart disease of native coronary artery without angina pectoris; Z86.718 Personal history of other venous thrombosis and embolism; Z79.1 Long term (current) use of non-steroidal anti-inflammatories (NSAID); Z79.891 Long term (current) use of opiate analgesic; Z79.899 Other long term (current) drug therapy; Z91.041 Radiographic dye allergy status; Z91.013 Allergy to seafood; W10.9XXA Fall (on) (from) unspecified stairs and steps, initial encounter; Y93.89 Activity, other specified; Y92.89 Other specified places as the place of occurrence of the external cause; Y99.8 Other external cause status

== ENCOUNTER 2021-10-15 07:21 | Emergency (ER) | payer OTHER ==
[~2021-10-15] VITALS: Ht 154.9 cm; Wt 52.2 kg
[2021-10-15 07:34] VITALS: BP 149/66
== END 2021-10-15 07:59 | disposition home or self-care (01) ==
LOC: ER 07:21
DX: S61.411D Laceration without foreign body of right hand, subsequent encounter (principal); Z48.02 Encounter for removal of sutures; I10 Essential (primary) hypertension; E78.00 Pure hypercholesterolemia, unspecified; Z79.899 Other long term (current) drug therapy; Z91.041 Radiographic dye allergy status; X58.XXXD Exposure to other specified factors, subsequent encounter

== ENCOUNTER 2021-10-20 17:55 | Inpatient (IN) | payer OTHER ==
[~2021-10-20] VITALS: Ht 154.9 cm; Wt 52.2 kg
--- NOTE | ~2021-10-20 | EMS ---
[address] [address] EMS Patient Care Report Name: TESS ALCANTAR Room #: 170-22 ADM IN M.R.#: [id number] Admission: 10/20/21 Attend Phys: Mary Callejas MD Discharge: Date of : 41 Report #: [id number] THIS REPORT FOR: //name// Report Transmitted: 10/20/2021 20:[address] [facility] MED-ACT Incident [id number] @ 10/20/2021 17:22 Incident Location [address] [place] [address] Patient TESS ALCANTAR Female, 76 Years 1945 Patient Address [address] [place] [address] Patient History Chronic Obstructive Pulmonary Disease (COPD),Hypertension (HTN),Seizures,Gastro-Esophageal Reflux Disease (GERD),Brain Tumor, Patient Allergies Other drug allergy, Patient Medications Amlodipine, Dexamethasone, Pantoprazole, Simvastatin, Metoprolol, Levetiracetam, Hydrocodone, Prednisone, Lorazepam, Zofran, Diphenhydramine, Chief Complaint "I'm short of breath" Disposition Transported No Lights/[place] Reason Breathing Problem Transported To [facility] Narrative 76yof found sitting upright on couch, alert/oriented, appearing slightly tachypnic and unwell. Pt reported that she got up to use the restroom and had [address] [address] EMS Patient Care Report Name: TESS ALCANTAR Room #: 170-22 ADM IN .R.#: [id number] Admission: 10/20/21 Attend Phys: Mary Callejas MD Discharge: Date of : 41 Report #: [id number] increased shortness of breath after exertion. Pt reported she has been on oxygen "all day" and admitted that she is supposed to be on oxygen "all the time." Basic vital signs obtained with a room air SpO2 found to be 89% along with EKG and 12 Lead. Pt was placed on nasal cannula with improved oxygenation. Pt reported that her symptoms have been going on for approximately 1 week, but she has noticed a significant decline over the last 48 hours. Pt reported that she was vaccinated for COVID-19, but has not received a booster. Pt denied chest pain, N/V/D, but had additional complaints of feeling clammy, having chills, and abdominal pain. Pt is unable to put abdominal pain on 10 scale. Pt requested transport to [facility] ER for further evaluation and treatment. Pt was assisted from living room to garage to awaiting cot. Pt positioned in semi-fowlers position and secured in position of comfort with straps. Pt was moved to ambulance without incident. Pt remained on oxygen via nasal cannula throughout EMS care. Hospital was contacted with patient information only. Pt remained conversational throughout EMS care and transport. Pt reported that her symptoms were improving with rest and oxygen. Upon arrival to ER, pt is alert and oriented, vital signs as noted, with improvement to her symptoms. Pt remained clammy to touch and reported she was still feeling "chills." EMS thermometer remained too cold to allow EMS to obtain an accurate temperature. Pt was moved inside ER to triage area. Pt care was transferred to ER triage nurse after being assisted from cot to wheel chair. Pt was left on 2L oxygen via nasal cannula. Initial Vitals @17:40P: 113,SpO2: 99, @17:28P: 125,SpO2: 91,DC Suspected: false @17:30P: 119,SpO2: 95,DC Suspected: false @17:40P: 111,R: 16,BP: 112/68,SpO2: 98, @17:49P: 109,R: 16,BP: 111/71,Glucose: 186,SpO2: 98, @17:27P: 124,R: 18,BP: 129/94,GCS: 15,SpO2: 89,Revised Trauma: 12, Impression Shortness of breath Procedures @17:27 ALS Assessment Response: UnchangedSucceeded @17:39 Surgical Mask on Patient Response: Unchanged @17:30 12-Lead ECG @17:29 Oxygen FlowRate: 4 Device: Nasal Cannula (NC) Response: ImprovedSucceeded Timeline [facility] [address] [place] [address] EMS Patient Care Report Name: TESS ALCANTAR Room #: 170-22 ADM IN M.R.#: [id number] Admission: 10/20/21 Attend Phys: Mary Callejas MD Discharge: Date of : 41 Report #: [id number] 17:21,Call Received 17:21,Psap Call 17:22,Dispatched 17:22,En Route 17:25,On Scene 17:26,At Patient 17:27,ALS Assessment,Response: UnchangedSucceeded, 17:27,BP: 129/94 M,PULSE: 124,RR: 18 R,SPO2: 89 Ox,ETCO2: ,BG: ,PAIN: ,GCS: 15, 17:28,BP: / M,PULSE: 125,RR: R,SPO2: 91 Ox,ETCO2: ,BG: ,PAIN: ,GCS: , 17:29,Oxygen FlowRate: 4 Device: Nasal Cannula (NC) Response: ImprovedSucceeded, 17:30,12-Lead ECG, 17:30,BP: / M,PULSE: 119,RR: R,SPO2: 95 Ox,ETCO2: ,BG: ,PAIN: ,GCS: , 17:39,Surgical Mask on Patient,Response: Unchanged 17:40,BP: / M,PULSE: 113,RR: R,SPO2: 99 Ox,ETCO2: ,BG: ,PAIN: ,GCS: , 17:40,BP: 112/68 M,PULSE: 111,RR: 16 R,SPO2: 98 Ox,ETCO2: ,BG: ,PAIN: ,GCS: , 17:40,Depart Scene 17:49,BP: 111/71 M,PULSE: 109,RR: 16 R,SPO2: 98 Ox,ETCO2: ,B,PAIN: ,GCS: , 17:50,At Destination 18:06,Call Closed Disclaimer v1.1 Copyright 2021 [employer] This EMS Care Summary contains data elements from the applicable legal record (which may be displayed differently). It is designed to provide pertinent information for the following purposes: continuity of care, clinical quality, and state data reporting. The complete legal record is available to ED staff and administrators of the receiving hospital in [employer] Patient Tracker. All data is provided "as is."
[2021-10-20 17:56] VITALS: BP 105/66
[2021-10-20] MEDS ORDERED: TELMISARTAN-HC1 EACH PO (18:17)
[2021-10-20 18:53] LABS: ABSOLUTE NEUTROPHILS 11.7 thou/uL (1.4-8.2); BASOPHILS 0.7 % (0.0-2.0); HEMATOCRIT 37.6 % (37.0-47.0); HEMOGLOBIN 11.7 gm/dL (12.0-15.0); LYMPHOCYTES 3.9 % (24.0-44.0); MCH 30.3 pg (26.0-34.0); MCHC 31.2 g/dL (28.0-37.0); MCV 97.2 fL (80.0-100.0); MONOCYTES 5.5 % (1.0-8.0); PLATELET COUNT 318 thou/uL (150-400); POLYS 89.9 % (36.0-66.0); RBC 3.87 mil/uL (4.20-5.00); RDW 18.2 % (10.5-14.5)
[2021-10-20 19:18] LABS: APTT 30.5 Seconds (24.5-32.8); INR 1.03; PROTIME 11.2 Seconds (10.5-12.1)
[2021-10-20 19:19] LABS: CALCIUM 9.2 mg/dL (8.5-10.1); CREATININE 1.8 mg/dL (0.6-1.0); POTASSIUM 5.7 mmol/L (3.5-5.1)
[2021-10-20 19:24] LABS: ALBUMIN 3.5 g/dL (3.4-5.0); TOTAL BILIRUBIN 0.3 mg/dL (0.2-1.0); TOTAL PROTEIN 7.6 g/dL (6.4-8.2)
[2021-10-20 19:28] LABS: ANISOCYTOSIS 2+
[2021-10-20 23:26] VITALS: BP 126/65
[2021-10-20 23:34] LABS: CALCIUM 9.3 mg/dL (8.5-10.1); CREATININE 1.9 mg/dL (0.6-1.0)
--- NOTE | 2021-10-21 07:25 | NUR ---
PATIENT DISCHARGED PRIOR TO OT EVALUATING PATIENT.
--- NOTE | 2021-10-21 07:39 | EKG ---
[address] [address] ELECTROCARDIOGRAM REPORT Name: TESS ALCANTAR Room #: 170-[facility] IN M.R.#: [id number] Admission: 10/20/21 Attend Phys: Mary Callejas MD Discharge: 10/20/21 Date of : 41 Report #: [id number] [facility] ED Test Date: 2021-10-20 Test Time: 18:26:20 Pat Name: TESS ALCANTAR Department: Room: 170 Gender: F Refractory Worker: kavitha : 1945 Requested By: Corby Anthony Order Number: [id number] MD: Juan Veloz Measurements Intervals [place] Rate: 111 P: 85 MS: 132 QRS: 83 QRSD: 108 T: -30 QT: 328 QTc: 446 Interpretive Statements Sinus tachycardia Inferior infarct, age indeterminate Compared to ECG 08/19/2021 21:59:39 No significant changes Electronically Signed On 10-21-2021 7:39:46 TOWING PILOT by Juan Veloz [email or web address] <ELECTRONICALLY SIGNED> By: Juan Veloz MD, [facility] 10/21/21 0739 1826 25 Juan Veloz MD, FACC /EPI
--- NOTE | 2021-10-21 16:11 | EKG ---
[address] [address] ELECTROCARDIOGRAM REPORT Name: TESS ALCANTAR Room #: 170-22 [facility] IN M.R.#: [id number] Admission: 10/20/21 Attend Phys: Mary Callejas MD Discharge: 10/20/21 Date of : 41 Report #: [id number] [facility] ED Test Date: 2021-10-20 Test Time: 21:01:55 Pat Name: TESS ALCANTAR Department: Room: 170 20 Gender: F Rn Physician Office: LETITIA : 1945 Requested By: Corby Anthony Order Number: [id number] MD: Juan Veloz Measurements Intervals [facility] Rate: 109 P: 81 MT: 137 QRS: 54 QRSD: 120 T: 16 QT: 329 QTc: 444 Interpretive Statements Sinus tachycardia Nonspecific intraventricular conduction delay Nonspecific T abnormalities, lateral leads Minimal ST elevation, lateral leads Artifact in lead(s) I,II,III,aVR,V1,V2,V3,V5 Compared to ECG 10/20/2021 18:26:20 Intraventricular conduction delay now present T-wave abnormality now present Electronically Signed On 10-21-2021 16:11:03 WIND SITE MANAGER by Juan Veloz [email or web address] <ELECTRONICALLY SIGNED> By: Juan Veloz MD, FACC 10/21/211610 00 00 Juan Veloz MD, FAC /EPI
== END 2021-10-20 23:48 | disposition short-term general hospital (02) | DRG 193 ==
LOC: ER 17:55 → EROBS 19:45
PROVIDERS: Emergency Medicine; Nurse Practitioner Family; ADMIT Hospitalist; ATTEND Hospitalist
DX: J18.9 Pneumonia, unspecified organism (principal); J96.21 Acute and chronic respiratory failure with hypoxia; I31.3 Pericardial effusion (noninflammatory); N17.9 Acute kidney failure, unspecified; I10 Essential (primary) hypertension; E78.00 Pure hypercholesterolemia, unspecified; G40.909 Epilepsy, unspecified, not intractable, without status epilepticus; E87.5 Hyperkalemia; N63.0 Unspecified lump in unspecified breast; Z20.822 Contact with and (suspected) exposure to COVID-19; I25.10 Atherosclerotic heart disease of native coronary artery without angina pectoris; Z95.5 Presence of coronary angioplasty implant and graft; I25.2 Old myocardial infarction; Z87.81 Personal history of (healed) traumatic fracture; Z86.718 Personal history of other venous thrombosis and embolism; Z85.118 Personal history of other malignant neoplasm of bronchus and lung; Z85.841 Personal history of malignant neoplasm of brain; Z89.431 Acquired absence of right foot; Z98.49 Cataract extraction status, unspecified eye; Z91.041 Radiographic dye allergy status; Z87.891 Personal history of nicotine dependence; Z89.421 Acquired absence of other right toe(s); Z90.5 Acquired absence of kidney; Z95.828 Presence of other vascular implants and grafts; Z92.21 Personal history of antineoplastic chemotherapy; Z92.3 Personal history of irradiation

== ENCOUNTER 2021-10-31 15:57 | Emergency (ER) | payer OTHER ==
[~2021-10-31] VITALS: Ht 154.9 cm; Wt 49.9 kg
[~2021-10-31 15:57] MED LIST changes: +TELMISARTAN-HC1 EACH PO
[2021-10-31 18:02] LABS: ABSOLUTE NEUTROPHILS 6.3 thou/uL (1.4-8.2); BASOPHILS 0.6 % (0.0-2.0); EOSINOPHILS 0.6 % (0.0-3.0); HEMATOCRIT 30.6 % (37.0-47.0); HEMOGLOBIN 9.8 gm/dL (12.0-15.0); LYMPHOCYTES 5.7 % (24.0-44.0); MCHC 32.2 g/dL (28.0-37.0); MCV 96.3 fL (80.0-100.0); MONOCYTES 9.4 % (1.0-8.0); PLATELET COUNT 210 thou/uL (150-400); POLYS 83.7 % (36.0-66.0); RBC 3.18 mil/uL (4.20-5.00); RDW 18.6 % (10.5-14.5); WBC 7.6 thou/uL (4.0-11.0)
[2021-10-31 18:16] LABS: APTT 26.5 Seconds (24.5-32.8); INR 1.02; PROTIME 11.1 Seconds (10.5-12.1)
[2021-10-31 19:57] LABS: CALCIUM 8.4 mg/dL (8.5-10.1); CREATININE 0.8 mg/dL (0.6-1.0); POTASSIUM 3.6 mmol/L (3.5-5.1)
[2021-10-31 20:12] LABS: MAGNESIUM 2.3 mg/dL (1.8-2.4); PHOSPHORUS 3.6 mg/dL (2.6-4.7); TOTAL BILIRUBIN 0.2 mg/dL (0.2-1.0); TOTAL PROTEIN 6.2 g/dL (6.4-8.2)
[2021-10-31 22:28] VITALS: BP 169/71
--- NOTE | 2021-11-01 07:47 | EKG ---
[facility] [place] [address] ELECTROCARDIOGRAM REPORT Name: TESS ALCANTAR [id number] Admission: 10/31/21 Attend Phys: Discharge: 10/31/21 Date of : 41 Report #: [id number] [facility] ED Test Date: 2021-10-31 Test Time: 17:49:14 Pat Name: TESS ALCANTAR Department: Room: Gender: F Seconds Handler: EFREN : 1945 Requested By: Brian Lance Order Number: [id number] MD: Josue Kenney Measurements Intervals [place] Rate: 86 P: -72 IA: 99 QRS: 57 QRSD: 101 T: -8 QT: 424 QTc: 508 Interpretive Statements Ectopic atrial rhythm Occasional premature ventricular complexes Small inferior Q waves Nonspecific T wave abnormality Prolonged QT interval Compared to ECG 10/20/2021 21:01:55 Ectopic atrial rhythm is now present Related premature ventricular complexes are noted Electronically Signed On 11-01-2021 7:47:06 STORE OPERATIONS MANAGER by Josue Kenney [email or web address] <ELECTRONICALLY SIGNED> By: Josue Kenney MD, [facility] 11/01/21 0747 1749 1749 Josue Kenney MD, [facility] /EPI
== END 2021-10-31 22:30 | disposition short-term general hospital (02) ==
LOC: ER 15:57
PROVIDERS: Emergency Medicine
DX: I70.8 Atherosclerosis of other arteries (principal); Z20.822 Contact with and (suspected) exposure to COVID-19; I82.402 Acute embolism and thrombosis of unspecified deep veins of left lower extremity; I10 Essential (primary) hypertension; E78.5 Hyperlipidemia, unspecified; I25.10 Atherosclerotic heart disease of native coronary artery without angina pectoris; I25.2 Old myocardial infarction; E78.00 Pure hypercholesterolemia, unspecified; Z79.899 Other long term (current) drug therapy; Z91.018 Allergy to other foods; Z91.013 Allergy to seafood